=== PATIENT | female | born 1995 | race Caucasian/White ===

== ENCOUNTER 2018-12-10 22:21 | Emergency (ER) | payer OTHER ==
--- NOTE | 2018-12-10 22:32 | EDPHY ---
General Time Seen by Provider: 12/10/18 22:31 Narrative: CLINICAL IMPRESSION: Urticarial reaction ASSESSMENT/PLAN: Patient is a 23-year-old female with no significant medical history who presents to the ED with a pruritic rash to wrists and chest as well as a tickle in her throat that has been present for 1 hr. The patient is well appearing and in no acute distress. Physical examination reveals faint rash along the dorsal aspect of bilateral wrists and right chest. Patient has had no recent medication use, do not suspect drug reaction. She has had no fever or URI symptoms; there are no signs of meningismus to suggest meningococcemia. History of physical examination is consistent with urticarial reaction secondary to unknown exposure. There were no clinical findings to suggest anaphylaxis, SJS/TENS, Kawasaki's, varicella virus, measles, roseola, rubella or erythema infectiosum. The patient was given Benadryl, Pepcid and prednisone in the emergency department near resolution of her symptoms. On repeat examination and prior to discharge the patient is well-appearing with no further urticarial rash, her oropharynx is clear, her lungs were clear and there was no evidence of hypoxia, respiratory distress or airway compromise. The patient will continue Zyrtec, Pepcid, Benadryl as needed and a Medrol Dosepak. She has not yet established care with a primary care provider, she currently splits her time between [place] and [place] and will be sure to establish care next week. Strict return precautions discussed- patient is to return to the emergency department should for worsening rash, oral swelling, oral lesions, difficulty breathing, skin sloughing, lethargy, altered mentation or for any other concerning symptom. Patient verbalizes understanding and she is in agreement with this plan. DIFFERENTIAL DX: Differential diagnosis including but not limited to and in no certain order infectious process, anaphylaxis, allergic reaction, medication reaction ED COURSE: 2044: Discussed with Dr. De Dios 0005: On repeat examination the patient reports she is feeling much better, hives have resolved. She denies any difficulty swallowing or difficulty breathing. CHIEF COMPLAINT: Possible allergic reaction HPI: Patient is a 23-year-old female with no significant medical history presents to the emergency department with complaints of hives and a tickle in her throat. The patient reports approximately an hour prior to arrival she started to notice some hives on her hands and right upper chest better very itchy. As soon as she experienced this she took 25 mg of Benadryl and proceeded to the emergency department for further evaluation. Patient endorses a similar episode last Wednesday where she experienced hives on her arms and chest as well as a tickle in her throat. She was seen and evaluated in [place] in the emergency department, started on prednisone with improvement of her symptoms and complete resolution. Patient was fine up until today when she had a recurrence. She denies any known allergies, no history of anaphylaxis. She denies any difficulty swallowing or passing secretions. She has no sore throat. She feels mildly nauseous however has had no vomiting or abdominal pain. There has been no new lotions or soaps, no other recent medications. PMH: Denies Pertinent Past Surgical History: Denies Family History: Noncontributory Social History: Occasional alcohol, denies illicit drug use, denies smoking. REVIEW OF SYSTEMS: All other systems negative Constitutional: No fever, no chills, appetite change. Eyes: No discharge, vision change ENT: "Tickle in throat". No sore throat, congestion, ear pain. Cardiovascular: No chest pain, no palpitations. Respiratory: No cough, no shortness of breath. Gastrointestinal: No abdominal pain, no vomiting, diarrhea. Genitourinary: No hematuria, dysuria, flank pain, pelvic pain Musculoskeletal: No back pain, joint swelling, joint pain, myalgias. Skin: Hives. Neurological: No headache or weakness. PHYSICAL EXAM: General Appearance: Patient is well-appearing and in no acute distress. HENT: Normocephalic, atraumatic. Bilateral external ears are normal. Bilateral tympanic membranes are normal with pearly kaiser reflex. Nares are clear, mucosa is pink. Oropharynx is clear, uvula is midline. There is no tonsillar enlargement or exudate. Posterior pharynx is clear. The dentition is normal. No stridor, phonation is normal.] Eyes: PERRLA, EOMI intact. Conjunctiva pink, no pallor or injection. Neck: Supple, nontender, no lymphadenopathy, no midline pain, FROM, no meningismus. Respiratory: There are no retractions, lungs are clear to auscultation. Cardiac: Regular rate and rhythm, no murmurs or gallops. Gastrointestinal: Abdomen is soft, nontender, bowel sounds normal, no masses/ hernia, no rigidity, guarding or focal peritoneal findings. Neurological: Alert and oriented x 3, CN 2-12 grossly intact, normal gait no ataxia, DTR's intact, normal sensation and strength Skin: Warm, dry, no nodules on palpation. Bilateral hands with very faint raised urticarial rash on the dorsal aspect. Very faint raised erythematous rash noted on the right chest. Musculoskeletal: Extremities are symmetrical, full range of motion, no tenderness, deformity, swelling, or erythema. Psychiatric: Patient is oriented X 3, there is no agitation. MEDICAL DECISION MAKING: Patient was seen independently. Secondary supervising physician at time of evaluation was Dr. De Dios, I discussed this case with him however he did not personally evaluate this patient. Diagnosis: Urticarial reaction . New, requires workup Summary: See Assessment and Plan for summary of ED visit Clinical lab tests: Not applicable. Independent visualization of images, tracing, or specimens: Not applicable. Decision to obtain medical records or history from someone other than the patient: No Review / Summarize previous medical records: None available Discussed patient with another provider: Yes, Dr. De Dios Patient Progress: Stable, discharge. - History Smoking Status: Never smoked - Objective Vital Signs: Initial Vital Signs Temperature (C) 36.8 C 12/10/18 22:24 Heart Rate 98 12/10/18 22:24 Respiratory Rate 18 12/10/18 22:24 Blood Pressure 96/67 L 12/10/18 22:24 O2 Sat (%) 93 12/10/18 22:24 O2 Delivery Mode Room Air Allergies/Adverse Reactions: Penicillins Allergy (Verified 12/10/18 22:23) Home Medications: Medication Instructions Recorded Lessina-28 Tablet 12/10/18 methylPREDNISolone [Medrol Dose 1 each PO AD #1 ea 12/11/18 Tariq] Medications Given: Discontinued Medications Diphenhydramine HCl (Benadryl) 25 mg PO EDNOW ONE Stop: 12/10/18 22:46 Last Admin: 12/10/18 22:54 Dose: 25 mg Famotidine (Pepcid) 40 mg PO EDNOW ONE Stop: 12/10/18 22:46 Last Admin: 12/10/18 22:54 Dose: 40 mg Prednisone (Prednisone) 60 mg PO EDNOW ONE Stop: 12/10/18 22:46 Last Admin: 12/10/18 22:54 Dose: 60 mg Departure - Departure Disposition: Home, Routine, Self-Care Clinical Impression: Urticaria Condition: Good Instructions: Urticaria (ED) Additional Instructions: DISCHARGE INSTRUCTIONS FROM YOUR DOCTOR Thank you for visiting our emergency department today. Please keep in mind that discharge from the emergency department does not mean that there is nothing wrong - it simply means that we have not identified an emergency condition that requires further evaluation or treatment in the hospital. You should always plan to follow up with primary care for re-evaluation of your condition in the next 2-3 days. Avoid any known allergens and exposures. Keep a diary of exposures and symptoms to determine any new allergies. Keep finger nails short. Avoid itching and scratching. Take Zyrtec 10 mg nightly. This is over the counter. Pepcid 40 mg daily. This is over the counter. Benadryl 25 mg every 4-6 hours as needed for breakthrough itching, hives and/or swelling. Medrol Dosepack (STEROID) as prescribed. More than 50% of people will notice resolution of allergy symptoms after starting this medication. BUT, over 50% of people will notice recurrence of allergy symptoms called rebound when the medication is stopped. If a steroid is taken close to allergy testing, the results will be affected. Schedule a follow-up visit with your primary care provider for re-evaluation next week. Watch closely for any signs of throat tightness and/or difficulty breathing. These symptoms can suggest a life threatening allergic reaction and require immediate attention of a medical professional. Return for recurrent facial swelling,swelling involving the mouth, lips, tongue , for difficulty breathing or swallowing, shortness of breath, wheezing,fainting , development of fever, for severe headache, neck stiffness, or for any other new, worsening, or worrisome symptoms. People present with illnesses and injuries in different ways, and it is always possible that we have missed something. You may always return for re-evaluation if symptoms worsen or if they are not improving or if you develop new/different symptoms. Again, thank you for choosing our emergency department. We hope that you feel better. Referrals: Patient,NotPresent [Unknown] - As per Instructions (It is important that you follow up with your primary care provider.) Prescriptions: methylPREDNISolone [Medrol Dose Tariq] 1 each PO AD #1 ea
[2018-12-10] MEDS ORDERED: predniSONE 20 MG TAB PO ONE (22:45)
[2018-12-10] MEDS ORDERED: FAMOTIDINE 20 MG TAB PO ONE (22:45)
[2018-12-10] MEDS ORDERED: diphenhydrAMINE 25 MG CAP PO ONE (22:45)
[2018-12-11 00:33] VITALS: BP 103/61
== END 2018-12-11 00:33 | disposition home or self-care (01) ==
DX: L50.9 Urticaria, unspecified (principal); Z88.0 Allergy status to penicillin
CPT/HCPCS: J7512